=== PATIENT | female | born 1990 | race African-American/Black ===

== ENCOUNTER 2018-07-14 19:38 | Observation (INO) ==
--- NOTE | 2018-07-14 21:21 | ED ---
HPI General Chief Complaint: Recheck/Abnormal Lab/Rx Stated Complaint: Recheck, abnormal labs Time Seen by Provider: 07/14/18 20:04 Source: patient Mode of arrival: ambulatory Limitations: no limitations History of Present Illness HPI narrative: Patient is a 28-year-old -[place] female, 8 para 5, 2 ABs, 1 miscarriage, who presents to the emergency room for the second time today with complaints of vaginal bleeding status post . Earlier today by Dr. peralta and evaluated for 5 weeks of vaginal bleeding. Patient reported she had been seen at a clinic and given the pill and then 24 hours later took 2 pills again. Patient states she is been bleeding ever since. No D &C procedure was performed. She denies any pelvic pain or abdominal pain. She denies any fevers or chills. She is complaining of some dizziness. She reports the bleeding is intermittently severe but has been going through approximately 3 pads a day. CBC showed hemoglobin of 5.9 this morning. Beta hCG was elevated at 42. Have an ultrasound was ordered to assess for retained products of conception. Ultrasound showed an echogenic mass measuring 4.8 x 2.5 x 1.9 cm in the lower uterine segment with increased vascularity. Patient was advised to remain for admission but opted to leave AMA at that time in order to pick her daughter up at school. Patient returns now to be admitted. Related Data Home Medications Medication Instructions Recorded Confirmed No Known Home Medications 07/14/18 07/14/18 Previous Rx's Medication Instructions Recorded oxycodone-acetaminophen 2 tab PO Q4H PRN 3 Days #10 tab 07/15/18 Allergies Allergy/AdvReac Type Severity Reaction Status Date / Time Penicillins Allergy Unknown UNKNOWN Verified 07/14/18 19:45 Review of Systems ROS: all other systems reviewed are negative FOR[facility]LY [facility], [facility] Medical History Medical History Asthma (Acute) FH: cholecystectomy (Acute) Surgical History Surgical History H/O hernia repair (Acute) Social History Social History Substance History: No History of Abuse Second Hand Smoke Exposure: No Smoking Status: Never smoker How Often Do You Have a Drink Containing Alcohol: Never Hx Recent Travel: No Recent Travel in [facility] within the Last 8 Weeks: No Recent Out of Country Travel within the Last 8 Weeks: No Immunization History Tetanus Immunization: >5 Years Exam Narrative Exam Narrative: GENERAL: Well-nourished, well-developed patient. SKIN: Focused skin assessment warm/dry. HEAD: Normocephalic. EYES: No scleral icterus. No injection or drainage. NECK: Supple, trachea midline. No JVD or lymphadenopathy. CARDIOVASCULAR: Regular rate and rhythm without murmurs, gallops, or rubs. RESPIRATORY: Breath sounds equal bilaterally. No accessory muscle use. GASTROINTESTINAL: Abdomen soft, non-tender, nondistended. Course Initial Documented Vital Signs Temperature 99.1 F 07/14/18 19:41 Pulse Rate 98 H 07/14/18 19:41 Respiratory Rate 18 07/14/18 19:41 Blood Pressure 145/76 H 07/14/18 19:41 Pulse Oximetry 100 07/14/18 19:41 Last Documented Vital Signs Temperature 98 F 07/15/18 16:00 Pulse Rate 91 H 07/15/18 16:00 Respiratory Rate 16 07/15/18 16:00 Blood Pressure 127/58 L 07/15/18 16:00 Pulse Oximetry 100 07/15/18 16:00 Medical Decision Making MDM Narrative Medical decision making narrative: Patient returns for admission due to continued vaginal bleeding status post pill administration. Patient states the bleeding has been going on for 5 weeks. It is intermittently heavy. She denies any abdominal pain. Hemoglobin was 5.9 this morning. Please see HPI for a pelvic ultrasound results. Have attempted to contact OB hospitalist, however he is currently involved in a delivery and will return call. Vital signs are stable. Will order PRBCs times 2 units. 22:05 Spoke with OB hopsitalist who will come and evaluate patient. 22:[address] Almendarez who will admit pt. Medical Screen Exam Complete: Yes Emergency Medical Condition: Yes Lab Data Result diagrams: 07/15/18 11:05 Lab Results 07/14/18 07/15/18 Range/Units 21:21 11:05 WBC 5.7 (4.0-11.0) th/mm3 RBC 3.92 L (4.00-5.30) mil/mm3 Hgb 8.9 L D (11.6-15.3) gm/dL Hct 28.1 L (35.0-46.0) % MCV 71.7 L D (80.0-100.0) fL MCH 22.8 L (27.0-34.0) pg MCHC 31.7 L (32.0-36.0) % RDW 27.4 H D (11.6-17.2) % Plt Count 289 (150-450) th/mm3 MPV 8.8 (7.0-11.0) fL MTS Gel Crossmatch See Detail Discharge Plan Discharge Disposition Patient Disposition: ED Admit(ED Internal Use Only) Discharge Condition Condition: Stable Discharge Order Discharge Orders: Discharge Order (Routine); Ordered 07/15/18 Ordered By: Vamshi Spangler ED Use Only Admit Order (Routine); Ordered 07/14/18 Ordered By: Neela Hardy Discharge Details Diagnosis: Excessive vaginal bleeding, Anemia Physicians Team ED Provider: Renetta Wasserman ED Midlevel Provider: Neela Hardy Primary Care Provider: Primary Care Amena Jiménez Attending Provider: Aman Almendarez Status ED Status: Left Department Discharge Information Discharge Date/Time: 07/15/18 00:32
[2018-07-14] MEDS ORDERED: Sodium Chlor 0.9% Inj 250 ML IV.SIG SCH (22:00)
--- NOTE | 2018-07-14 23:20 | P.HPOB ---
History of Present Illness Primary Care Physician: No Primary Care Physician Chief Complaint: Vaginal bleeding post medical History of Present Illness: Patient is 28-year-old black female who 5 weeks ago underwent a medical in [place] with Cytotec and RU486, patient began bleeding soon after that and has bled basically on and off since and to the point her hemoglobin is now 5.9 and hematocrit 19.6, she is having little pain and no other symptoms. Ultrasound done here in the emergency department shows 4 x 3cm tissue mass in the lower uterine segment consistent with retained products Para: 5 : 8 Total # of Miscarriage(s): 1 Total # of Abortions (Spontaneous & Elective): 2 Review of Systems All other systems reviewed negative except as stated in HPI PMFSH - History History Provided By: Patient - Medical History Medical History: Medical History (Last Reviewed 07/14/18 @ 21:19 by CHRISTINE Stanley) Asthma FH: cholecystectomy - Surgical History Surgical History: Surgical History (Last Reviewed 07/14/18 @ 21:46 by CHRISTINE Stanley) H/O hernia repair - Tobacco History Second Hand Smoke Exposure: No Smoking Status: Never smoker - Alcohol History How Often Do You Have a Drink Containing Alcohol: Never - Substance Use History Substance History: No History of Abuse - Travel History History of Recent Travel: No Recent Travel in the [place] Within the Last 8 Weeks: No Recent Travel Out of the Country Within the Last 8 Weeks: No - Immunization History Tetanus Immunization: >5 Years Medications and Allergies Active Medications: Active Medications Sodium Chloride (Ns Inj) 250 mls @ 15 mls/hr IV.SIG ONCE ISAIAH Stop: 07/15/18 14:39 Last Admin: 07/14/18 23:03 Dose: 15 mls/hr Allergies Allergy/AdvReac Type Severity Reaction Status Date / Time Penicillins Allergy Unknown UNKNOWN Verified 07/14/18 19:45 Home Medications Medication Instructions Recorded Confirmed Type No Known Home Medications 07/14/18 07/14/18 History Exam Vital signs: Vital Signs 07/14/18 19:41 07/14/18 19:45 07/14/18 22:53 Temperature 99.1 F 98.6 F Pulse Rate 98 H 98 H 88 Respiratory Rate 18 20 18 Blood Pressure 145/76 H 141/63 H 129/56 L Pulse Oximetry 100 100 100 07/14/18 23:10 Temperature 98.3 F Pulse Rate 84 Respiratory Rate 22 Blood Pressure 129/61 Pulse Oximetry 100 Intake & Output 07/14/18 07/14/18 07/15/18 06:59 18:59 06:59 Intake Total 0 / 0 Balance 0 / 0 Weight 133.7 kg Intake: Intake (Blood Product) Amt 0 / 0 Rbc As-3 Leukoreduced Unit 0 / 0 [id number] Narrative: GENERAL: Obese patient. SKIN: Warm and dry. HEAD: Normocephalic and atraumatic. EYES: No scleral icterus. No injection or drainage. ENT: No nasal drainage noted. Mucous membranes pink. Airway patent. NECK: Supple, trachea midline. No JVD. CARDIOVASCULAR: Regular rate and rhythm without murmurs, gallops, or rubs. RESPIRATORY: Breath sounds equal bilaterally. No accessory muscle use. BREASTS: Bilateral exam showed no masses , no retractions, no nipple discharge. ABDOMEN/GI: Abdomen soft, non-tender, bowel sounds present, no rebound, no guarding Fundal Height: [8 weeks size-] GENITOURINARY: External Genitalia: intact and normal in appearance Speculum exam shows no active bleeding and no blood in the vagina Cervix: [Closed-] Dilatation: [-Closed] Effacement: [Thick-] Station: [High-] Uterus consistent with 8-10 weeks size No adnexal masses EXTREMITIES: No cyanosis or edema. BACK: Nontender without obvious deformity. No CVA tenderness. NEUROLOGICAL: Awake and alert. Motor and sensory grossly within normal limits. Five out of 5 muscle strength in all muscle groups. Normal speech. Results - Labs Labs: Laboratory Results - last 24 hr 07/14/18 21:21 MTS Gel Crossmatch See Detail Caprini VTE Risk Assessment Caprini VTE Risk Assessment: No/Low Risk (score <= 1) Caprini Risk Assessment Model: Point Value = 1 Point Value = 2 Point Value = 3 Point Value = 5 Age 41-60 Minor surgery BMI > 25 kg/m2 Swollen legs Varicose veins or History of unexplained or recurrent spontaneous Oral contraceptives or hormone replacement Sepsis (< 1 month) Serious lung disease, including pneumonia (< 1 month) Abnormal pulmonary function Acute myocardial infarction Congestive heart failure (< 1 month) History of inflammatory bowel disease Medical patient at bed rest Age 61-74 Arthroscopic surgery Major open surgery (> 45 min) Laparoscopic surgery (> 45 min) Malignancy Confined to bed (> 72 hours) Immobilizing plaster cast Central venous access Age >= 75 History of VTE Family history of VTE Factor V Leiden Prothrombin [id number] Lupus anticoagulant Anticardiolipin antibodies Elevated serum homocysteine Heparin-induced thrombocytopenia Other congenital or acquired thrombophilia Stroke (< 1 month) Elective arthroplasty Hip, pelvis, or leg fracture Acute spinal cord injury (< 1 month) Prophylaxis Regimen: Total Risk Factor Score Risk Level Prophylaxis Regimen 0-1 Low Early ambulation 2 Moderate Order ONE of the following: *Sequential Compression Device (SCD) *Heparin 5000 units SQ BID 3-4 Higher Order ONE of the following medications: *Heparin 5000 units SQ TID *Enoxaparin/Lovenox 40 mg SQ daily (WT < 150 kg, CrCl > 30 mL/min) *Enoxaparin/Lovenox 30 mg SQ daily (WT < 150 kg, CrCl > 10-29 mL/min) *Enoxaparin/Lovenox 30 mg SQ BID (WT < 150 kg, CrCl > 30 mL/min) AND/OR *Sequential Compression Device (SCD) 5 or more Highest Order ONE of the following medications: *Heparin 5000 units SQ TID (Preferred with Epidurals) *Enoxaparin/Lovenox 40 mg SQ daily (WT < 150 kg, CrCl > 30 mL/min) *Enoxaparin/Lovenox 30 mg SQ daily (WT < 150 kg, CrCl > 10-29 mL/min) *Enoxaparin/Lovenox 30 mg SQ BID (WT < 150 kg, CrCl > 30 mL/min) AND *Sequential Compression Device (SCD) Assessment and Plan - Diagnosis (1) Incomplete with delayed or excessive hemorrhage Code(s): O03.1 - Delayed or excessive hemorrhage following incomplete spontaneous Status: Acute (2) Anemia Code(s): D64.9 - Anemia, unspecified Status: Acute - Plan Plan for this patient is to be admitted hospital and received 2 units of blood transfusion to increase her hemoglobin hematocrit this to be done overnight and then D&C performed in the morning to evacuate the uterus Patient understands plan and agrees with same (2) Anemia Qualifiers: Anemia type: other cause Other causes of anemia: acute posthemorrhagic Qualified Code(s): D62 - Acute posthemorrhagic anemia
[2018-07-15] MEDS ORDERED: Clindamycin 900 mg/NS Premix 900 MG/50 ML PIGGYBACK IV.SIG PRN (09:30)
[2018-07-15 11:32] LABS: Hematocrit 28.1 % (35.0-46.0); Hemoglobin 8.9 gm/dL (11.6-15.3); Mean Corpuscular HGB Conc 31.7 % (32.0-36.0); Mean Corpuscular Hemoglobin 22.8 pg (27.0-34.0); Mean Corpuscular Volume 71.7 fL (80.0-100.0); Mean Platelet Volume 8.8 fL (7.0-11.0); Platelet Count 289 th/mm3 (150-450); Red Blood Count 3.92 mil/mm3 (4.00-5.30); Red Cell Distribution Width 27.4 % (11.6-17.2); White Blood Count 5.7 th/mm3 (4.0-11.0)
[2018-07-15] MEDS ORDERED: Succinylcholine Inj 100 MG/5 ML Syringe IV.PUSH ONE (13:41)
[2018-07-15] MEDS ORDERED: Lidocaine PF 1% Inj 5 ML Syringe INFILTRATN ONE (13:41)
[2018-07-15] MEDS ORDERED: Ketorolac Inj 30 MG/ML (IVP) Vial IV.PUSH ONE (13:41)
[2018-07-15] MEDS ORDERED: Promethazine 25 MG Supp RECTAL PRN (14:21)
[2018-07-15] MEDS ORDERED: Post-op Orders (for Pharmacy) OTHER ONE (14:21)
[2018-07-15] MEDS ORDERED: Bisacodyl 10 MG Supp RECTAL PRN (14:21)
--- NOTE | 2018-07-15 14:24 | P.OP ---
- Preoperative Diagnosis (1) Incomplete with delayed or excessive hemorrhage - Postoperative Diagnosis (1) Incomplete with delayed or excessive hemorrhage Date of procedure: 07/15/18 Procedure: D&C with suction Anesthesia: ABDON Surgeon: Vamshi Spangler MD Estimated blood loss (mL): 25 Pathology: other (POC)
[2018-07-15] MEDS ORDERED: fentaNYL Citrate Inj 100 MCG/2 ML Ampul ONE (14:41)
--- NOTE | 2018-07-15 14:42 | MP ---
cc: Vamshi Spangler MD DATE OF OPERATION: 07/15/2018 PROCEDURE: Dilatation and curettage with suction curette. PREOPERATIVE DIAGNOSIS: Incomplete . POSTOPERATIVE DIAGNOSIS: Incomplete . SURGEON: Vamshi Spangler MD. ESTIMATED BLOOD LOSS: 25 mL. COMPLICATIONS: None. FINDINGS: Products of conception adherent to the uterine wall. ANESTHESIA: General, Dr. Rhea Jacques. PROCEDURE IN DETAIL: After informed consent, the patient was taken to the operating room. She was placed under general anesthesia, was placed in a supine position, legs in the [employer] cane stirrups. Abdomen, perineum and vagina were prepped and draped in normal sterile fashion along with the bladder being drained with a red Hall catheter. Timeout was taken. Once everyone agreed on the procedure and identified the patient, a speculum was placed in the vagina. The cervix was grasped with a single-tooth tenaculum. The cervix was already open and sounded to 8 cm. A suction curette was passed to the fundus, 8 mm size. All products of conception were evacuated. Sharp curette was passed and the remaining products of conception were loosened from the posterior wall of the uterus. A suction curette was passed one last time and all products of conception were evacuated. The patient tolerated the procedure well. She was taken to recovery room in stable condition. Lap and instrument counts reported as correct. Vamshi Spangler MD JWNarda/flip , 02:27 PM , 02:30 PM
[2018-07-15 14:53] VITALS: RESP 16
[2018-07-15 15:15] VITALS: O2SAT 100
[2018-07-15 16:06] VITALS: BP 127/58; PULSE 91; TEMP 98
[2018-07-15] MEDS ORDERED: Senna/Docusate Sodium 8.6/50 MG Tablet PO SCH (21:00)
== END 2018-07-15 18:43 | disposition home or self-care (01) ==
LOC: NEPC 19:38 → NEDA 19:38 → NEPHCDU 07-15 00:23 → N07 07-15 13:33 → NEPHCDU 07-15 16:04
PROVIDERS: ADMIT Obstetrics & Gynecology Maternal & Fetal Medicine; ATTEND Obstetrics & Gynecology Maternal & Fetal Medicine
DX: O03.1 Delayed or excessive hemorrhage following incomplete spontaneous abortion; D62 Acute posthemorrhagic anemia; J45.909 Unspecified asthma, uncomplicated; O04.89 (Induced) termination of pregnancy with other complications; N93.8 Other specified abnormal uterine and vaginal bleeding; E66.9 Obesity, unspecified; R42 Dizziness and giddiness
CPT/HCPCS: 36430; 85027; 86923; 88305; 94664; 96360; 96361; 99285; G0378; J0330; J1885; J2405; J2704; J3010; J7050; J7120; P9016